=== PATIENT | male | born 1960 | race Caucasian/White ===

== ENCOUNTER → 2018-04-08 10:03 | Outpatient (CLI) | payer OTHER, SELFPAY ==
--- NOTE | 2018-04-08 10:45 | MRI_ITS ---
STUDY: MRI UPPER EXTREMITY RIGHT FOREARM WITH AND WITHOUT CONTRAST REASON FOR EXAM: Male, 57 years old. Mass. Numbness in the fourth and fifth digits. TECHNIQUE: Standardized fat and water weighted pulse sequences were obtained in all 3 orthogonal planes, pre-and post contrast administration. 7 ml of Gadavist contrast material was administered intravenously for the contrast portion of the examination. COMPARISON: None. FINDINGS: Normal subcutis adipose space, without subcutis adipose space edema. There is a 3.5 x 1.9 x 0.5 cm fat signal intensity nonenhancing mass of the flexor digitorum profundus musculature in the ulnar side corresponding to palpable abnormality, series 6, 7, and 13 images 14/36 through 18/36 Normal extensor muscles and tendons of the forearm and wrist. Normal interosseous membrane. Normal radius and ulna, without a periosteal, cortical, or cancellous marrow abnormality. There is no fracture. There is no abnormal contrast enhancement. 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 Electronically Signed: Compa Cohen MD at 21:46 EST , Service support ,
== END ==
PROVIDERS: Family Provider Family Medicine; PCP Family Medicine; Referring Provider Orthopaedic Surgery; Visit Provider Orthopaedic Surgery
DX: R22.31 Localized swelling, mass and lump, right upper limb (principal)
CPT/HCPCS: 73220; A9585; A4216